=== PATIENT | female | born 1945 ===

== ENCOUNTER 2017-03-03 20:57 | Emergency (ER) | payer OTHER, MEDICARE ==
[2017-03-03 20:57] VITALS: BMI 22.8
[2017-03-03 21:15] VITALS: RESP 18; TEMP 98.1; O2SAT 97
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
[2017-03-03 22:08] VITALS: BP 134/86; PULSE 79
--- NOTE | 2017-03-04 08:23 | RAD ---
PROCEDURE: Radiographs of the right humerus. HISTORY: trauma COMPARISON: Limited comparison a prior right shoulder radiographs 11/29/2009. FINDINGS: BONES: No acute fracture or destructive bony lesion identified. The tubercle for the tendon of the of the deltoid muscle is again appreciated in the external rotation view laterally at the proximal diaphysis, stable in appearance in the interval. SOFT TISSUES: Normal. OTHER FINDINGS: None. IMPRESSION: No acute fracture or dislocation is seen related to the right humerus. No destructive bony lesion identified.
== END 2017-03-03 22:20 | disposition home or self-care (01) ==
LOC: H.ER 20:57
DX: S40.021A Contusion of right upper arm, initial encounter (principal); V03.10XA Pedestrian on foot injured in collision with car, pick-up truck or van in traffic accident, initial encounter; Y92.410 Unspecified street and highway as the place of occurrence of the external cause; E78.5 Hyperlipidemia, unspecified

== ENCOUNTER 2017-09-25 18:45 | Emergency (ER) | payer MEDICARE, OTHER ==
[2017-09-25 18:46] VITALS: BMI 22.8
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
[2017-09-25 21:48] VITALS: BP 125/64; PULSE 64; RESP 18; TEMP 98.1; O2SAT 97
== END 2017-09-25 21:49 | disposition home or self-care (01) ==
LOC: H.ER 18:45
DX: S22.31XA Fracture of one rib, right side, initial encounter for closed fracture (principal); X50.9XXA Other and unspecified overexertion or strenuous movements or postures, initial encounter; Y92.89 Other specified places as the place of occurrence of the external cause; E78.5 Hyperlipidemia, unspecified

== ENCOUNTER 2018-02-09 12:44 | Emergency (ER) | payer MEDICARE, OTHER ==
[2018-02-09 12:45] VITALS: BMI 22.8
[2018-02-09 12:53] VITALS: O2SAT 90
[2018-02-09] MEDS ORDERED: Sodium Chloride 0.9% 1,000 ML IV STA (13:36)
--- NOTE | 2018-02-09 13:48 | ED PDOC ---
HPI:Nausea, Vomiting, Diarrhea Time Seen by Provider: 02/09/18 13:14 Chief Complaint (Nursing): Abdominal Pain Chief Complaint (Provider): Nausea, vomiting, diarrhea History Per: Patient History/Exam Limitations: no limitations Onset/Duration Of Symptoms: Hrs Current Symptoms Are (Timing): Still Present Associated Symptoms: Nausea, Vomiting, Diarrhea. denies: Fever, Chills Additional History Per: Patient Additional Complaint(s): 72yo female, with history of high cholesterol, comes to ER reporting sudden onset nausea, vomiting and diarrhea after she took omeprazole earlier today. Patient states she was prescribed omeprazole due to her acid reflux but upon taking it today, she had a "bad reaction." Patient reports similar episode in the past after taking Nexium but states it was not as bad. Additionally, patient had such symptoms 3 days ago but attributes that to bad food eaten that weekend. She otherwise denies any chest pain, fever, chills, weakness, or shortness of breath. No additional complaints. Past Medical History Reviewed: Historical Data, Nursing Documentation, Vital Signs Vital Signs: Last Vital Signs Temp 97.7 F 02/09/18 12:50 Pulse 115 H 02/09/18 12:50 Resp 20 02/09/18 12:50 BP 126/79 02/09/18 12:50 Pulse Ox 90 L 02/09/18 12:50 - Medical History PMH: Hyperlipidemia Denies: Chronic Kidney Disease - Family History Family History: States: Unknown Family Hx - Living Arrangements Living Arrangements: With Family - Home Medications Home Medications: Ambulatory Orders Medication Instructions Recorded Cyclobenzaprine [Cyclobenzaprine 10 mg PO Q8 PRN #9 tab 06/13/15 HCl] Ibuprofen 600 mg PO Q6 PRN #20 tablet 06/13/15 Oxycodone HCl/Acetaminophen 1 tab PO Q4 PRN #12 tab 06/13/15 [Percocet 325 mg-5 mg] traMADol [Ultram] 50 mg PO Q6H PRN #20 tab 09/25/17 Dicyclomine [Dicyclomine HCl] 10 mg PO TID #15 cap 02/09/18 Ondansetron ODT [Zofran ODT] 4 mg PO Q8 PRN #12 odt 02/09/18 - Allergies Allergies/Adverse Reactions: Allergies Allergy/AdvReac Type Severity Reaction Status Date / Time shrimp Allergy RASH Verified 02/09/18 12:50 esomeprazole [From Nexium] AdvReac VOMITING Verified 02/09/18 12:49 Review of Systems ROS Statement: Except As Marked, All Systems Reviewed And Found Negative Constitutional: Negative for: Fever, Chills Cardiovascular: Negative for: Chest Pain Respiratory: Negative for: Shortness of Breath Gastrointestinal: Positive for: Nausea, Vomiting, Abdominal Pain, Diarrhea Neurological: Negative for: Weakness, Numbness Physical Exam - Reviewed Nursing Documentation Reviewed: Yes Vital Signs Reviewed: Yes - Physical Exam Appears: Positive for: Non-toxic Head Exam: Positive for: ATRAUMATIC, NORMAL INSPECTION, NORMOCEPHALIC Skin: Positive for: Normal Color Eye Exam: Positive for: Normal appearance Neck: Positive for: Normal, Supple Cardiovascular/Chest: Positive for: Tachycardia Respiratory: Positive for: Normal Breath Sounds Gastrointestinal/Abdominal: Positive for: Normal Exam, Soft. Negative for: Tenderness, Guarding, Rebound Back: Positive for: Normal Inspection Extremity: Positive for: Normal ROM Neurologic/Psych: Positive for: Alert, Oriented - Laboratory Results Result Diagrams: 02/09/18 14:19 02/09/18 14:19 - ECG O2 Sat by Pulse Oximetry: 90 - Progress Re-evaluation Time: 15:46 Condition: Re-examined, Improved Medical Decision Making Medical Decision Making: Impression: Vomiting and diarrhea w/ epigastric pain Differential: Acute pancreatitis, acute gastritis Plan: * Labs * Pepcid 20mg IV * Zofran 4mg IV * Immodium 4mg PO * IV Fluids 1610 On reassessment, patient remains awake, alert, oriented x 3 and is laying in bed comfortably. On exam, abdomen is soft and non tender and patient is stable for discharge home. Scribe Attestation: Documented by Elaine Dykes, acting as a scribe for Susie Salinas MD. Provider Scribe Attestation: All medical record entries made by the Scribe were at my direction and personally dictated by me. I have reviewed the chart and agree that the record accurately reflects my personal performance of the history, physical exam, medical decision making, and the department course for this patient. I have also personally directed, reviewed, and agree with the discharge instructions and disposition. Disposition - Clinical Impression Clinical Impression: Vomiting and diarrhea - Patient ED Disposition Is Patient to be Admitted: No Doctor Will See Patient In The: Office Counseled Patient/Family Regarding: Studies Performed, Diagnosis, Need For Followup - Disposition Referrals: [facility] [Outside] Disposition: Routine/Home Disposition Time: 15:47 Condition: GOOD Additional Instructions: CARLIE HALL, thank you for letting us take care of you today. Your provider was Susie Salinas MD and you were treated for NAUESA & VOMITING. The emergency medical care you received today was directed at your acute symptoms. If you were prescribed any medication, please fill it and take as directed. It may take several days for your symptoms to resolve. Return to the Emergency Department if your symptoms worsen, do not improve, or if you have any other problems. Please contact your doctor or call one of the physicians/clinics you have been referred to that are listed on the Patient Visit Information form that is included in your discharge packet. Bring any paperwork you were given at discharge with you along with any medications you are taking to your follow up visit. Our treatment cannot replace ongoing medical care by a primary care provider outside of the emergency department. Thank you for allowing the [facility] team to be part of your care today. If you had an X-Ray or CT scan: A Radiologist will review the ED reading if any change in treatment is needed we will contact you. If you had a blood, urine, or wound culture: It will take several days for the results, if any change in treatment is needed we will contact you. If you had an STI test: It will take 48 hours for the results. Please call after 1 week if you have not heard back. Prescriptions: Dicyclomine [Dicyclomine HCl] 10 mg PO TID #15 cap Ondansetron ODT [Zofran ODT] 4 mg PO Q8 PRN #12 odt PRN Reason: Nausea/Vomiting Instructions: Diarrhea in Adolescents and Adults Forms: [employer] ([place]orese) Print Language: POLISH
[2018-02-09 14:35] LABS: ALB/GLOB RATIO 1.1 (1.0-2.1); ALBUMIN 5.2 g/dL (3.5-5.0); BLOOD UREA NITROGEN 22 mg/dl (7-17); CALCIUM 10.7 mg/dL (8.4-10.2); GFR NON-AFRICAN AMERICAN 55; LIPASE 69 U/L (23-300)
[2018-02-09 14:45] LABS: ALT/SGPT 19 U/L (9-52); AST/SGOT 41 U/L (14-36)
[2018-02-09 14:58] LABS: BASO % 0.1 % (0.0-2.0); EOS # 0.1 K/uL (0.0-0.7); EOS % 0.4 % (0.0-4.0); HEMOGLOBIN 15.2 g/dL (12.0-16.0); LYMPH # 1.4 K/uL (1.0-4.3); MEAN CELL VOLUME 98.3 fl (81.0-99.0); MEAN CORPUSCULAR HEMOGLOBIN 31.2 pg (27.0-31.0); MEAN CORPUSCULAR HGB CONC 31.8 g/dL (33.0-37.0); MEAN PLATELET VOLUME 10.1 fl (7.2-11.7); MONO # 1.1 K/uL (0.0-0.8); MONO % 6.2 % (0.0-10.0); NEUT # 14.5 K/uL (1.8-7.0); NEUT % 85.3 % (50.0-75.0); NRBC % 0.2 % (0.0-0.0); PLATELET COUNT 211 K/uL (130-400); RBC 4.88 Mil/uL (3.80-5.20); RED CELL DISTRIBUTION WIDTH 13.5 % (11.5-14.5)
[2018-02-09 17:29] LABS: BANDS 2 % (0-2); EOSINOPHIL 1 % (0-7); LYMPHOCYTE 10 % (20-50); MONOCYTE 4 % (0-10); MYELOCYTE 1 % (0-0); NEUTROPHIL 82 % (42-75); TOTAL CELLS COUNTED 100
[2018-02-09 17:30] LABS: PLATELET ESTIMATE NORMAL (NORMAL)
[2018-02-09 17:31] LABS: OVALOCYTES SLIGHT; STOMATOCYTES SLIGHT
[2018-02-09 18:19] VITALS: BP 128/70; PULSE 84; RESP 16; TEMP 97.4
== END 2018-02-09 16:45 | disposition home or self-care (01) ==
LOC: H.ER 12:44
DX: R11.10 Vomiting, unspecified (principal); R19.7 Diarrhea, unspecified
CPT/HCPCS: 80053; 83690; 85025; 96361; 96374; 96375; 99283; J2405; J7030